=== PATIENT | female | born 1970 | race Caucasian/White ===

== ENCOUNTER 2019-08-14 08:52 | Inpatient (IN) ==
[2019-08-14] MEDS ORDERED: GLUCAGON 1 MG VIAL IM PRN (13:32)
[2019-08-14] MEDS ORDERED: MAGNESIUM HYDROXIDE SUSP 30 ML UDCUP PO PRN (13:32)
[2019-08-14] MEDS ORDERED: ACETAMINOPHEN 325 MG TABLET PO PRN (13:32)
[2019-08-14] MEDS ORDERED: ONDANSETRON 4 MG/2 ML VIAL IV PRN (13:32)
[2019-08-14] MEDS ORDERED: DEXTROSE 50% 25 GM/50 ML VIAL IV PRN (13:32)
[2019-08-14 15:36] LABS: Basophils # 0.1 10*3/uL (0.0-0.2); Basophils % 0.8 % (0.0-0.8); Eosinophils # 0.1 10*3/uL (0.0-0.87); Hematocrit 44.4 VOL% (35.7-47.0); Hemoglobin 15.7 GM/DL (12.0-16.0); Immature Granulocytes % 0.1 %; Immature Granulocytes Absolute 0.01 #; Lymphocytes # 2.7 10*3/uL (1.4-4.0); Lymphocytes % 31.5 % (21.3-54.2); Mean Corpuscular HGB Conc 35.4 GM/DL (32-36); Mean Corpuscular Volume 83.3 FL (87-102); Mean Platelet Volume 10.3 FL (9.6-12.0); Monocytes % 3.9 % (1.7-12.7); Neutrophils % 62.7 % (38.7-73.9); Platelet Count 162 T/CUMM (130-400); Red Blood Count 5.33 MC/CUMM (3.8-5.5); Red Cell Distribution Width 13.1 % (9.3-17.3); White Blood Count 8.7 T/CUMM (4-12)
[2019-08-14] MEDS ORDERED: KETOROLAC 30 MG/1 ML VIAL IV SCH (16:00)
[2019-08-14] MEDS ORDERED: LEVOFLOXACIN INJ 250 MG in PREMIX 1 EACH IV SCH (16:00)
[2019-08-14 16:27] LABS: Albumin 3.4 G/DL (3.4-5.0); Bilirubin,Total 0.5 MG/DL (0.2-1.0); Calcium 9.4 MG/DL (8.5-10.1); Osmolality,Calculated 277.4 MOS/KG (273-304); Total Protein 7.1 G/DL (6.4-8.3)
[2019-08-14] MEDS: SODIUM CHLORIDE 0.9% 1,000 ML IV SCH (16:51)
[2019-08-14] MEDS: PANTOPRAZOLE 40 MG TABLET PO SCH (16:52)
[2019-08-14] MEDS: INSULIN REGULAR 100 UNIT/ML SUBCUT SCH ×2 (16:53→21:47)
[2019-08-14] MEDS: KETOROLAC 30 MG/1 ML VIAL IV SCH (20:11)
[2019-08-14] MEDS: SULFAMETHOX/TRIMETHOPRIM 800-160 MG TABLET PO SCH (21:32)
[2019-08-14] MEDS: DOCUSATE SODIUM 100 MG CAPSULE PO SCH (21:32)
[2019-08-14] MEDS: ENOXAPARIN 40 MG/0.4 ML SYRINGE SUBCUT SCH (21:33)
[2019-08-14] MEDS: traMADol 50 MG TABLET PO PRN (21:33)
[2019-08-15] MEDS: KETOROLAC 30 MG/1 ML VIAL IV SCH ×4 (00:51→20:35)
[2019-08-15] MEDS: VANCOMYCIN INJ 1,000 MG in SODIUM CHLORIDE 0.9% 250 ML IV SCH (05:17)
[2019-08-15] MEDS: SODIUM CHLORIDE 0.9% 1,000 ML IV SCH ×2 (06:00→21:36)
[2019-08-15 07:10] LABS: Calcium 7.4 MG/DL (8.5-10.1); Risk Ratio 11.6; VLDL CHOLESTEROL 564.6 MG/DL
[2019-08-15 07:18] LABS: Osmolality,Calculated 277.1 MOS/KG (273-304)
[2019-08-15] MEDS: INSULIN REGULAR 100 UNIT/ML SUBCUT SCH ×4 (08:34→21:38)
[2019-08-15] MEDS: SERTRALINE 25 MG TABLET PO SCH (08:35)
[2019-08-15] MEDS: sitaGLIPtin 25 MG TABLET PO SCH (08:35)
[2019-08-15] MEDS: METOPROLOL SUCCINATE XL 50 MG TABLET PO SCH (08:35)
[2019-08-15] MEDS: ASPIRIN EC 81 MG TABLET PO SCH (08:35)
[2019-08-15] MEDS: ESTRADIOL 1 MG TABLET PO SCH (08:35)
[2019-08-15] MEDS: SULFAMETHOX/TRIMETHOPRIM 800-160 MG TABLET PO SCH ×2 (08:35→21:37)
[2019-08-15] MEDS: PANTOPRAZOLE 40 MG TABLET PO SCH (08:36)
[2019-08-15] MEDS: DOCUSATE SODIUM 100 MG CAPSULE PO SCH ×2 (08:36→21:38)
[2019-08-15] MEDS: gemfibroziL 600 MG TABLET PO SCH ×2 (08:36→16:20)
[2019-08-15] MEDS: INSULIN GLARGINE 100 UNIT/ML SUBCUT SCH (09:00)
[2019-08-15] MEDS: traMADol 50 MG TABLET PO PRN (12:40)
[2019-08-15] MEDS: NICOTINE 14 MG/24 HR PATCH TRANSDERM SCH (18:20)
[2019-08-15] MEDS: ENOXAPARIN 40 MG/0.4 ML SYRINGE SUBCUT SCH (21:37)
[2019-08-15] MEDS: SIMVASTATIN 20 MG TABLET PO SCH (21:37)
[2019-08-16] MEDS: KETOROLAC 30 MG/1 ML VIAL IV SCH ×4 (00:09→18:03)
[2019-08-16] MEDS: VANCOMYCIN INJ 1,000 MG in SODIUM CHLORIDE 0.9% 250 ML IV SCH ×2 (00:10→18:02)
[2019-08-16] MEDS: SODIUM CHLORIDE 0.9% 1,000 ML IV SCH ×3 (00:26→21:58)
[2019-08-16 05:57] LABS: Basophils % 0.7 % (0.0-0.8); Eosinophils # 0.1 10*3/uL (0.0-0.87); Eosinophils % 1.1 % (0.00-10.9); Hematocrit 41.4 VOL% (35.7-47.0); Hemoglobin 14.7 GM/DL (12.0-16.0); Immature Granulocytes % 0.4 %; Immature Granulocytes Absolute 0.02 #; Lymphocytes # 2.1 10*3/uL (1.4-4.0); Lymphocytes % 38.8 % (21.3-54.2); Mean Corpuscular HGB Conc 35.5 GM/DL (32-36); Mean Corpuscular Volume 83.6 FL (87-102); Mean Platelet Volume 10.1 FL (9.6-12.0); Monocytes % 5.3 % (1.7-12.7); Neutrophils % 53.7 % (38.7-73.9); Platelet Count 140 T/CUMM (130-400); Red Blood Count 4.95 MC/CUMM (3.8-5.5); Red Cell Distribution Width 13.2 % (9.3-17.3); White Blood Count 5.5 T/CUMM (4-12)
[2019-08-16 06:23] LABS: Microcytosis 1+
[2019-08-16 06:24] LABS: Hypochromasia Slight; Platelet Estimate Adequate; Polychromasia Slight
[2019-08-16 07:15] LABS: Calcium 7.1 MG/DL (8.5-10.1); Osmolality,Calculated 278.1 MOS/KG (273-304)
[2019-08-16] MEDS: INSULIN GLARGINE 100 UNIT/ML SUBCUT SCH (08:49)
[2019-08-16] MEDS: PANTOPRAZOLE 40 MG TABLET PO SCH (08:50)
[2019-08-16] MEDS: sitaGLIPtin 25 MG TABLET PO SCH (08:50)
[2019-08-16] MEDS: ASPIRIN EC 81 MG TABLET PO SCH (08:50)
[2019-08-16] MEDS: ESTRADIOL 1 MG TABLET PO SCH (08:50)
[2019-08-16] MEDS: DOCUSATE SODIUM 100 MG CAPSULE PO SCH ×2 (08:50→21:51)
[2019-08-16] MEDS: NICOTINE 14 MG/24 HR PATCH TRANSDERM SCH (08:50)
[2019-08-16] MEDS: SERTRALINE 25 MG TABLET PO SCH (08:50)
[2019-08-16] MEDS: METOPROLOL SUCCINATE XL 50 MG TABLET PO SCH (08:50)
[2019-08-16] MEDS: SULFAMETHOX/TRIMETHOPRIM 800-160 MG TABLET PO SCH ×2 (08:50→21:50)
[2019-08-16] MEDS: gemfibroziL 600 MG TABLET PO SCH ×2 (08:50→16:39)
[2019-08-16] MEDS: INSULIN REGULAR 100 UNIT/ML SUBCUT SCH ×4 (09:21→22:23)
[2019-08-16 13:03] LABS: Apearance,Urine CLEAR (Clear); Bilirubin,Urine Negative (Negative); Blood, Urine Negative (Negative); Glucose,Urine (UA) 50 mg/dL (Negative); Ketones,Urine Negative (Negative); Mucus,Urine Occasional /LPF (Occasional); Nitrite,Urine Negative (Negative); Protein,Urine Negative; Squamous Epithelial Cell,Urine Occasional /HPF (0-10); Urine Color Straw (Yellow); Urine Specific Gravity 1.014 (1.001-1.035); Urine Urobilinogen < 2.0 EU/DL (0.2-1.0); WBC,Urine 1 /HPF (0-6)
[2019-08-16] MEDS: SIMVASTATIN 20 MG TABLET PO SCH (21:50)
[2019-08-16] MEDS: ENOXAPARIN 40 MG/0.4 ML SYRINGE SUBCUT SCH (21:51)
[2019-08-17] MEDS: KETOROLAC 30 MG/1 ML VIAL IV SCH ×2 (00:14→05:47)
[2019-08-17] MEDS: SODIUM CHLORIDE 0.9% 1,000 ML IV SCH (00:52)
[2019-08-17 05:51] LABS: Calcium 7.3 MG/DL (8.5-10.1)
[2019-08-17] MEDS: INSULIN REGULAR 100 UNIT/ML SUBCUT SCH (08:54)
[2019-08-17] MEDS: INSULIN GLARGINE 100 UNIT/ML SUBCUT SCH (08:54)
[2019-08-17] MEDS: METOPROLOL SUCCINATE XL 50 MG TABLET PO SCH (08:55)
[2019-08-17] MEDS: ASPIRIN EC 81 MG TABLET PO SCH (08:55)
[2019-08-17] MEDS: gemfibroziL 600 MG TABLET PO SCH (08:55)
[2019-08-17] MEDS: PANTOPRAZOLE 40 MG TABLET PO SCH (08:55)
[2019-08-17] MEDS: SERTRALINE 25 MG TABLET PO SCH (08:55)
[2019-08-17] MEDS: sitaGLIPtin 25 MG TABLET PO SCH (08:55)
[2019-08-17] MEDS: ESTRADIOL 1 MG TABLET PO SCH (08:55)
[2019-08-17] MEDS: NICOTINE 14 MG/24 HR PATCH TRANSDERM SCH (08:55)
[2019-08-17] MEDS: DOCUSATE SODIUM 100 MG CAPSULE PO SCH (08:55)
[2019-08-17] MEDS: SULFAMETHOX/TRIMETHOPRIM 800-160 MG TABLET PO SCH (08:56)
[2019-08-17 11:20] VITALS: BP 164/83
== END 2019-08-17 12:00 | disposition home or self-care (01) | DRG 638 ==
LOC: N.3E 14:20
PROVIDERS: ADMIT Internal Medicine; ATTEND Internal Medicine

== ENCOUNTER 2020-02-19 11:13 | Observation (INO) ==
[2020-02-19 12:20] LABS: Basophils # 0.1 10*3/uL (0.0-0.2); Basophils % 0.6 % (0.0-0.8); Eosinophils # 0.1 10*3/uL (0.0-0.87); Eosinophils % 0.8 % (0.00-10.9); Hemoglobin 16.4 GM/DL (12.0-16.0); Immature Granulocytes % 0.4 %; Immature Granulocytes Absolute 0.04 #; Lymphocytes # 2.8 10*3/uL (1.4-4.0); Lymphocytes % 30.3 % (21.3-54.2); Mean Corpuscular HGB Conc 35.7 GM/DL (32-36); Mean Corpuscular Volume 81.9 FL (87-102); Mean Platelet Volume 9.3 FL (9.6-12.0); Monocytes % 4.7 % (1.7-12.7); Neutrophils % 63.2 % (38.7-73.9); Platelet Count 136 T/CUMM (130-400); Red Blood Count 5.62 MC/CUMM (3.8-5.5); Red Cell Distribution Width 13.2 % (9.3-17.3); White Blood Count 9.3 T/CUMM (4-12)
[2020-02-19 12:27] LABS: Bacteria,Urine Occasional /HPF (Few); Bilirubin,Urine Negative (Negative); Blood, Urine Negative (Negative); Glucose,Urine (UA) Negative (Negative); Ketones,Urine Negative (Negative); Mucus,Urine Occasional /LPF (Occasional); Nitrite,Urine Negative (Negative); Protein,Urine Negative; RBC,Urine 1 /HPF (0-4); Squamous Epithelial Cell,Urine Occasional /HPF (0-10); Urine Appearance CLEAR (Clear); Urine Color Yellow (Yellow); Urine Specific Gravity 1.014 (1.001-1.035); Urine Urobilinogen < 2.0 EU/DL (0.2-1.0); WBC,Urine 1 /HPF (0-6)
[2020-02-19 12:29] LABS: PT Patient Result 10.5 SECS (9.8-11.9); Partial Thromboplastin Time 26.5 SECS (23.9-33.8)
[2020-02-19 12:34] LABS: Barbiturates Screen,Urine Negative (Negative); Benzodiazepines Screen,Urine Negative (Negative); Cannabinoid Screen,Urine Positive (Negative); Opiate Screen,Urine Negative (Negative); Phencyclidine Screen,Urine Negative (Negative)
[2020-02-19 12:37] LABS: Platelet Estimate Adequate
[2020-02-19 12:38] LABS: Anisocytosis Slight
[2020-02-19 12:40] LABS: Alanine Aminotransferase 64 U/L (13-56); Albumin 3.9 G/DL (3.4-5.0); Alkaline Phosphatase 135 U/L (45-117); Aspartate Amino Transferase 29 U/L (0-37); Blood Urea Nitrogen 12 MG/DL (7-18); Calcium 8.9 MG/DL (8.5-10.1); Estimated Glom Filtration Rate 89 ML/MIN; Glucose 183 MG/DL (74-106); Osmolality,Calculated 274.1 MOS/KG (273-304)
[2020-02-19] MEDS ORDERED: DEXTROSE 50% 25 GM/50 ML VIAL IV PRN (16:05)
[2020-02-19] MEDS ORDERED: GLUCAGON 1 MG VIAL IM PRN (16:05)
[2020-02-19] MEDS ORDERED: ONDANSETRON 4 MG/2 ML VIAL IV PRN (16:05)
[2020-02-19] MEDS: SODIUM CHLORIDE 0.9% 1,000 ML IV SCH (17:25)
[2020-02-19] MEDS: INSULIN LISPRO 100 UNIT/ML SUBCUT SCH ×2 (17:26→21:15)
[2020-02-19] MEDS: KETOROLAC 15 MG/1 ML VIAL IV SCH (18:35)
[2020-02-19] MEDS: NICOTINE 14 MG/24 HR PATCH TRANSDERM SCH (18:44)
[2020-02-19] MEDS: ACETAMINOPHEN 325 MG TABLET PO PRN (21:20)
[2020-02-19] MEDS: DOCUSATE SODIUM 100 MG CAPSULE PO SCH (21:24)
[2020-02-19] MEDS: METOPROLOL SUCCINATE XL 50 MG TABLET PO SCH (23:43)
[2020-02-19] MEDS: SERTRALINE 100 MG TABLET PO SCH (23:44)
[2020-02-19] MEDS: methylPREDNISolone SOD SUC 40 MG/1 ML VIAL IV SCH (23:44)
[2020-02-20] MEDS: ASPIRIN EC 81 MG TABLET PO SCH ×2 (00:24→20:54)
[2020-02-20] MEDS: AMITRIPTYLINE 50 MG TABLET PO SCH ×2 (00:24→20:54)
[2020-02-20] MEDS: carvediloL 12.5 MG TABLET PO SCH ×2 (00:24→09:13)
[2020-02-20] MEDS: SODIUM CHLORIDE 0.9% 1,000 ML IV SCH ×3 (04:07→21:05)
[2020-02-20] MEDS: KETOROLAC 15 MG/1 ML VIAL IV SCH ×3 (04:07→17:52)
[2020-02-20 05:22] LABS: Basophils % 0.6 % (0.0-0.8); Eosinophils % 0.1 % (0.00-10.9); Hematocrit 44.2 VOL% (35.7-47.0); Hemoglobin 15.6 GM/DL (12.0-16.0); Immature Granulocytes % 0.4 %; Immature Granulocytes Absolute 0.03 #; Lymphocytes # 1.4 10*3/uL (1.4-4.0); Lymphocytes % 19.6 % (21.3-54.2); Mean Corpuscular HGB Conc 35.3 GM/DL (32-36); Mean Corpuscular Volume 83.1 FL (87-102); Mean Platelet Volume 9.3 FL (9.6-12.0); Monocytes % 2.2 % (1.7-12.7); Neutrophils % 77.1 % (38.7-73.9); Platelet Count 130 T/CUMM (130-400); Red Blood Count 5.32 MC/CUMM (3.8-5.5); Red Cell Distribution Width 13.2 % (9.3-17.3); White Blood Count 6.9 T/CUMM (4-12)
[2020-02-20 05:56] LABS: Calcium 8.3 MG/DL (8.5-10.1); Osmolality,Calculated 275.5 MOS/KG (273-304)
[2020-02-20] MEDS ORDERED: INSULIN GLARGINE 100 UNIT/ML SUBCUT SCH (09:00)
[2020-02-20] MEDS: GLIMEPIRIDE 2 MG TABLET PO SCH ×2 (09:13→16:49)
[2020-02-20] MEDS: CARBOXYMETHYLCELLULOSE 1% OPH SOLN LEFT EYE SCH ×4 (09:13→20:55)
[2020-02-20] MEDS: DOCUSATE SODIUM 100 MG CAPSULE PO SCH ×2 (09:13→20:53)
[2020-02-20] MEDS: PANTOPRAZOLE 40 MG TABLET PO SCH (09:13)
[2020-02-20] MEDS: FAMOTIDINE 20 MG TABLET PO SCH (09:13)
[2020-02-20] MEDS: ROSUVASTATIN 20 MG TABLET PO SCH (09:13)
[2020-02-20] MEDS: INSULIN LISPRO 100 UNIT/ML SUBCUT SCH ×4 (09:14→20:54)
[2020-02-20] MEDS: methylPREDNISolone SOD SUC 40 MG/1 ML VIAL IV SCH ×2 (09:14→20:54)
[2020-02-20] MEDS: NICOTINE 14 MG/24 HR PATCH TRANSDERM SCH ×2 (09:15→20:53)
[2020-02-20] MEDS: carvediloL 25 MG TABLET PO SCH ×2 (12:35→16:48)
[2020-02-20] MEDS: METOPROLOL SUCCINATE XL 50 MG TABLET PO SCH (20:53)
[2020-02-20] MEDS: SERTRALINE 100 MG TABLET PO SCH (20:53)
[2020-02-20] MEDS: ACETAMINOPHEN 325 MG TABLET PO PRN (21:05)
[2020-02-21] MEDS: SODIUM CHLORIDE 0.9% 1,000 ML IV SCH ×2 (02:18→18:30)
[2020-02-21] MEDS: KETOROLAC 15 MG/1 ML VIAL IV SCH ×3 (02:28→18:30)
[2020-02-21] MEDS: INSULIN LISPRO 100 UNIT/ML SUBCUT SCH ×4 (08:32→20:58)
[2020-02-21] MEDS ORDERED: INSULIN GLARGINE 100 UNIT/ML SUBCUT SCH (09:00)
[2020-02-21] MEDS: GLIMEPIRIDE 4 MG TABLET PO SCH ×2 (09:59→17:03)
[2020-02-21] MEDS: carvediloL 25 MG TABLET PO SCH ×2 (09:59→17:03)
[2020-02-21] MEDS: ACETAMINOPHEN 325 MG TABLET PO PRN ×3 (09:59→20:56)
[2020-02-21] MEDS: ROSUVASTATIN 20 MG TABLET PO SCH (10:00)
[2020-02-21] MEDS: FAMOTIDINE 20 MG TABLET PO SCH (10:00)
[2020-02-21] MEDS: methylPREDNISolone SOD SUC 40 MG/1 ML VIAL IV SCH ×2 (10:00→21:03)
[2020-02-21] MEDS: PANTOPRAZOLE 40 MG TABLET PO SCH (10:00)
[2020-02-21] MEDS: INSULIN GLARGINE 100 UNIT/ML SUBCUT SCH (10:01)
[2020-02-21] MEDS: FUROSEMIDE 20 MG/2 ML VIAL IV SCH (10:01)
[2020-02-21] MEDS: DOCUSATE SODIUM 100 MG CAPSULE PO SCH ×2 (10:02→20:55)
[2020-02-21] MEDS: NICOTINE 14 MG/24 HR PATCH TRANSDERM SCH (11:51)
[2020-02-21] MEDS: CARBOXYMETHYLCELLULOSE 1% OPH SOLN LEFT EYE SCH ×4 (11:51→21:05)
[2020-02-21] MEDS: ASPIRIN EC 81 MG TABLET PO SCH (20:55)
[2020-02-21] MEDS: SERTRALINE 100 MG TABLET PO SCH (20:55)
[2020-02-21] MEDS: METOPROLOL SUCCINATE XL 50 MG TABLET PO SCH (20:55)
[2020-02-21] MEDS: AMITRIPTYLINE 50 MG TABLET PO SCH (20:55)
[2020-02-22] MEDS: KETOROLAC 15 MG/1 ML VIAL IV SCH ×3 (02:54→21:22)
[2020-02-22] MEDS: SODIUM CHLORIDE 0.9% 1,000 ML IV SCH ×3 (04:37→20:23)
[2020-02-22 05:31] LABS: Calcium 8.3 MG/DL (8.5-10.1); Osmolality,Calculated 281.8 MOS/KG (273-304)
[2020-02-22] MEDS: GLIMEPIRIDE 4 MG TABLET PO SCH ×2 (10:16→17:47)
[2020-02-22] MEDS: DOCUSATE SODIUM 100 MG CAPSULE PO SCH ×2 (10:16→21:25)
[2020-02-22] MEDS: FAMOTIDINE 20 MG TABLET PO SCH (10:17)
[2020-02-22] MEDS: carvediloL 25 MG TABLET PO SCH ×2 (10:17→17:47)
[2020-02-22] MEDS: NICOTINE 14 MG/24 HR PATCH TRANSDERM SCH (10:17)
[2020-02-22] MEDS: methylPREDNISolone SOD SUC 40 MG/1 ML VIAL IV SCH ×2 (10:17→21:32)
[2020-02-22] MEDS: PANTOPRAZOLE 40 MG TABLET PO SCH (10:17)
[2020-02-22] MEDS: INSULIN GLARGINE 100 UNIT/ML SUBCUT SCH (10:18)
[2020-02-22] MEDS: FUROSEMIDE 20 MG/2 ML VIAL IV SCH (10:18)
[2020-02-22] MEDS: LIDOCAINE 5% PATCH TRANSDERM SCH (10:19)
[2020-02-22] MEDS: CARBOXYMETHYLCELLULOSE 1% OPH SOLN LEFT EYE SCH ×4 (10:20→21:28)
[2020-02-22] MEDS: INSULIN LISPRO 100 UNIT/ML SUBCUT SCH ×4 (13:02→21:24)
[2020-02-22] MEDS: ACETAMINOPHEN 325 MG TABLET PO PRN (17:47)
[2020-02-22] MEDS ORDERED: ROSUVASTATIN 20 MG TABLET PO SCH (21:00)
[2020-02-22] MEDS: ASPIRIN EC 81 MG TABLET PO SCH (21:25)
[2020-02-22] MEDS: AMITRIPTYLINE 50 MG TABLET PO SCH (21:25)
[2020-02-22] MEDS: SERTRALINE 100 MG TABLET PO SCH (21:25)
[2020-02-22] MEDS: METOPROLOL SUCCINATE XL 50 MG TABLET PO SCH (21:26)
[2020-02-23] MEDS: KETOROLAC 15 MG/1 ML VIAL IV SCH (02:42)
[2020-02-23] MEDS: SODIUM CHLORIDE 0.9% 1,000 ML IV SCH (05:34)
[2020-02-23 06:01] LABS: Basophils % 0.4 % (0.0-0.8); Eosinophils % 0.1 % (0.00-10.9); Hematocrit 44.9 VOL% (35.7-47.0); Hemoglobin 15.5 GM/DL (12.0-16.0); Immature Granulocytes Absolute 0.08 #; Lymphocytes # 1.8 10*3/uL (1.4-4.0); Lymphocytes % 22.5 % (21.3-54.2); Mean Corpuscular HGB Conc 34.5 GM/DL (32-36); Mean Corpuscular Volume 84.2 FL (87-102); Mean Platelet Volume 9.8 FL (9.6-12.0); Monocytes % 4.4 % (1.7-12.7); Neutrophils % 71.6 % (38.7-73.9); Platelet Count 120 T/CUMM (130-400); Red Blood Count 5.33 MC/CUMM (3.8-5.5); White Blood Count 8.1 T/CUMM (4-12)
[2020-02-23 06:25] LABS: Calcium 8.3 MG/DL (8.5-10.1)
[2020-02-23 07:20] VITALS: BP 143/87
[2020-02-23] MEDS: INSULIN GLARGINE 100 UNIT/ML SUBCUT SCH (08:33)
[2020-02-23] MEDS: carvediloL 25 MG TABLET PO SCH (08:33)
[2020-02-23] MEDS: PANTOPRAZOLE 40 MG TABLET PO SCH (08:33)
[2020-02-23] MEDS: DOCUSATE SODIUM 100 MG CAPSULE PO SCH (08:33)
[2020-02-23] MEDS: FAMOTIDINE 20 MG TABLET PO SCH (08:33)
[2020-02-23] MEDS: INSULIN LISPRO 100 UNIT/ML SUBCUT SCH (08:33)
[2020-02-23] MEDS: GLIMEPIRIDE 4 MG TABLET PO SCH (08:33)
[2020-02-23] MEDS: NICOTINE 14 MG/24 HR PATCH TRANSDERM SCH (08:34)
[2020-02-23] MEDS: CARBOXYMETHYLCELLULOSE 1% OPH SOLN LEFT EYE SCH (08:34)
[2020-02-23] MEDS: FUROSEMIDE 20 MG/2 ML VIAL IV SCH (08:34)
[2020-02-23] MEDS: methylPREDNISolone SOD SUC 40 MG/1 ML VIAL IV SCH (08:34)
[2020-02-23] MEDS: LIDOCAINE 5% PATCH TRANSDERM SCH (08:34)
[2020-02-23] MEDS ORDERED: cloNIDine 0.1 MG TABLET PO SCH (09:00)
[2020-02-23] MEDS ORDERED: SIMVASTATIN 20 MG TABLET PO SCH (21:00)
== END 2020-02-23 09:35 | disposition home or self-care (01) ==
LOC: N.ED 11:13 → N.EDINP 11:13 → N.3E 15:39
PROVIDERS: ADMIT Internal Medicine; ATTEND Internal Medicine

== ENCOUNTER 2020-03-23 15:36 | Inpatient (IN) ==
[2020-03-23] MEDS ORDERED: SODIUM CHLORIDE 0.9% 1,000 ML IV STA (16:04)
[2020-03-23] MEDS ORDERED: ONDANSETRON 4 MG/2 ML VIAL IV ONE (16:19)
[2020-03-23] MEDS ORDERED: HYDROmorphone 2 MG/1 ML VIAL IV STA ×3 (16:19→18:34)
[2020-03-23] MEDS ORDERED: HYDROmorphone 2 MG/1 ML VIAL ONE (16:20)
[2020-03-23] MEDS ORDERED: ONDANSETRON 4 MG/2 ML VIAL ONE (16:20)
[2020-03-23 16:44] LABS: Basophils # 0.1 10*3/uL (0.0-0.2); Basophils % 0.5 % (0.0-0.8); Eosinophils % 0.3 % (0.00-10.9); Hematocrit 45.8 VOL% (35.7-47.0); Hemoglobin 19.4 GM/DL (12.0-16.0); Immature Granulocytes % 0.5 %; Immature Granulocytes Absolute 0.05 #; Mean Corpuscular HGB Conc 42.4 GM/DL (32-36); Mean Corpuscular Volume 82.7 FL (87-102); Mean Platelet Volume 10.1 FL (9.6-12.0); Neutrophils % 75.7 % (38.7-73.9); Platelet Count 182 T/CUMM (130-400); Red Blood Count 5.54 MC/CUMM (3.8-5.5); Red Cell Distribution Width 12.8 % (9.3-17.3); White Blood Count 10.6 T/CUMM (4-12)
[2020-03-23 16:52] LABS: Band Neutrophils 1 % (0-10); Lymphocytes 15 % (20-55); Segmented Neutrophils 76 % (50-85); Total Cells Counted 100
[2020-03-23 16:53] LABS: Platelet Estimate Adequate
[2020-03-23 17:01] LABS: Sodium 126 MMOL/L (136-145)
[2020-03-23 17:19] LABS: Alkaline Phosphatase 184 U/L (45-117); Aspartate Amino Transferase 83 U/L (0-37); Calcium 7.5 MG/DL (8.5-10.1)
[2020-03-23 17:21] LABS: Blood Urea Nitrogen 12 MG/DL (7-18); Estimated Glom Filtration Rate 88 ML/MIN
[2020-03-23 17:22] LABS: Carbon Dioxide 23 MMOL/L (21-32); Glucose 387 MG/DL (74-106); Osmolality,Calculated 268.4 MOS/KG (273-304)
[2020-03-23 17:32] LABS: Total Protein 7.3 G/DL (6.4-8.3)
[2020-03-23 17:38] LABS: Alanine Aminotransferase 101 U/L (13-56)
[2020-03-23 17:39] LABS: Bacteria,Urine Occasional /HPF (Few); Bilirubin,Urine Negative (Negative); Blood, Urine Negative (Negative); Glucose,Urine (UA) >=500 mg/dL (Negative); Ketones,Urine Negative (Negative); Nitrite,Urine Negative (Negative); Protein,Urine >=500 MG/DL; RBC,Urine 1 /HPF (0-4); Squamous Epithelial Cell,Urine Occasional /HPF (0-10); Urine Appearance CLEAR (Clear); Urine Color Yellow (Yellow); Urine Specific Gravity 1.045 (1.001-1.035); Urine Urobilinogen < 2.0 EU/DL (0.2-1.0); WBC,Urine 1 /HPF (0-6)
[2020-03-23 18:11] LABS: Risk Ratio 17.6
[2020-03-23 18:12] LABS: VLDL CHOLESTEROL 1885.6 MG/DL
[2020-03-23] MEDS: SODIUM CHLORIDE 0.9% 1,000 ML IV SCH (19:12)
[2020-03-23] MEDS: AMITRIPTYLINE 50 MG TABLET PO SCH (20:12)
[2020-03-23] MEDS: SIMVASTATIN 20 MG TABLET PO SCH (20:12)
[2020-03-23] MEDS: ASPIRIN EC 81 MG TABLET PO SCH (20:12)
[2020-03-23] MEDS: OMEGA 3 ACID ETHYL ESTERS 1 GM CAPSULE PO SCH (20:12)
[2020-03-23] MEDS: DOCUSATE SODIUM 100 MG CAPSULE PO SCH (20:12)
[2020-03-23] MEDS: SERTRALINE 100 MG TABLET PO SCH (20:12)
[2020-03-23] MEDS: HYDROmorphone 2 MG/1 ML VIAL IV PRN (22:22)
[2020-03-23] MEDS: ONDANSETRON 4 MG/2 ML VIAL IV PRN (23:49)
[2020-03-24] MEDS: HYDROmorphone 2 MG/1 ML VIAL IV PRN ×4 (02:14→20:30)
[2020-03-24] MEDS: SODIUM CHLORIDE 0.9% 1,000 ML IV SCH ×2 (02:15→14:57)
[2020-03-24] MEDS: ONDANSETRON 4 MG/2 ML VIAL IV PRN ×3 (06:09→20:35)
[2020-03-24 06:58] LABS: Basophils % 0.4 % (0.0-0.8); Eosinophils % 0.4 % (0.00-10.9); Hematocrit 43.2 VOL% (35.7-47.0); Hemoglobin 16.4 GM/DL (12.0-16.0); Immature Granulocytes % 0.3 %; Immature Granulocytes Absolute 0.03 #; Lymphocytes # 1.7 10*3/uL (1.4-4.0); Lymphocytes % 18.3 % (21.3-54.2); Mean Corpuscular Volume 85.5 FL (87-102); Monocytes % 5.2 % (1.7-12.7); Neutrophils % 75.4 % (38.7-73.9); Platelet Count 141 T/CUMM (130-400); Red Blood Count 5.05 MC/CUMM (3.8-5.5); Red Cell Distribution Width 13.2 % (9.3-17.3); White Blood Count 9.3 T/CUMM (4-12)
[2020-03-24 07:24] LABS: Platelet Estimate Adequate
[2020-03-24] MEDS ORDERED: INSULIN GLARGINE 100 UNIT/ML SUBCUT SCH (07:30)
[2020-03-24 08:01] LABS: Carbon Dioxide 24 MMOL/L (21-32); Estimated Glom Filtration Rate 109 ML/MIN; Glucose 334 MG/DL (74-106); Osmolality,Calculated 260.5 MOS/KG (273-304); Sodium 125 MMOL/L (136-145)
[2020-03-24] MEDS: ACETAMINOPHEN 325 MG TABLET PO PRN ×2 (08:02→17:19)
[2020-03-24] MEDS: PANTOPRAZOLE 40 MG TABLET PO SCH (08:02)
[2020-03-24 08:03] LABS: Alkaline Phosphatase 152 U/L (45-117)
[2020-03-24] MEDS: carvediloL 25 MG TABLET PO SCH ×2 (08:03→16:16)
[2020-03-24] MEDS: DOCUSATE SODIUM 100 MG CAPSULE PO SCH ×2 (08:03→20:29)
[2020-03-24] MEDS: FAMOTIDINE 20 MG TABLET PO SCH (08:03)
[2020-03-24 08:04] LABS: Albumin 2.4 G/DL (3.4-5.0); Blood Urea Nitrogen 4 MG/DL (7-18)
[2020-03-24 08:05] LABS: Bilirubin,Total 1.17 MG/DL (0.2-1.0)
[2020-03-24 08:10] LABS: Aspartate Amino Transferase 189 U/L (0-37)
[2020-03-24 08:44] LABS: Alanine Aminotransferase 115 U/L (13-56)
[2020-03-24] MEDS: SODIUM CHLOR 0.9% KCL 20 MEQ 20 MEQ/1,000 ML BAG IV SCH ×2 (11:29→20:50)
[2020-03-24] MEDS: POTASSIUM CHLORIDE RIDER 10 MEQ in PREMIX 1 EACH IV SCH ×3 (11:29→16:17)
[2020-03-24] MEDS ORDERED: HYDROmorphone 2 MG/1 ML VIAL IV ONE (11:30)
[2020-03-24] MEDS: INSULIN LISPRO 100 UNIT/ML SUBCUT SCH ×3 (12:39→20:53)
[2020-03-24] MEDS: CARBOXYMETHYLCELLULOSE 1% OPH SOLN LEFT EYE SCH ×3 (15:21→20:50)
[2020-03-24] MEDS: GLIMEPIRIDE 4 MG TABLET PO SCH (16:16)
[2020-03-24 16:50] LABS: Hepatitis B Core IgM Quant < 0.05 Index; Hepatitis B Surface Ag Quant 0.26 Index; Hepatitis B Surface Ag Result Non-Reactive (NonReactive); Hepatitis C Virus Ab Quant 0.04 Index; Hepatitis C Virus Ab Result Non-Reactive (NonReactive)
[2020-03-24] MEDS: AMITRIPTYLINE 50 MG TABLET PO SCH (20:29)
[2020-03-24] MEDS: OMEGA 3 ACID ETHYL ESTERS 1 GM CAPSULE PO SCH (20:29)
[2020-03-24] MEDS: SIMVASTATIN 20 MG TABLET PO SCH (20:29)
[2020-03-24] MEDS: SERTRALINE 100 MG TABLET PO SCH (20:29)
[2020-03-24] MEDS: ASPIRIN EC 81 MG TABLET PO SCH (20:29)
[2020-03-25] MEDS: HYDROmorphone 2 MG/1 ML VIAL IV PRN ×5 (01:47→22:30)
[2020-03-25] MEDS: ONDANSETRON 4 MG/2 ML VIAL IV PRN ×3 (01:48→18:56)
[2020-03-25] MEDS: SODIUM CHLOR 0.9% KCL 20 MEQ 20 MEQ/1,000 ML BAG IV SCH ×4 (02:32→22:38)
[2020-03-25 05:35] LABS: Basophils # 0.1 10*3/uL (0.0-0.2); Basophils % 0.4 % (0.0-0.8); Eosinophils # 0.1 10*3/uL (0.0-0.87); Eosinophils % 0.4 % (0.00-10.9); Hematocrit 43.6 VOL% (35.7-47.0); Hemoglobin 15.2 GM/DL (12.0-16.0); Immature Granulocytes % 0.3 %; Immature Granulocytes Absolute 0.04 #; Lymphocytes # 1.6 10*3/uL (1.4-4.0); Lymphocytes % 13.5 % (21.3-54.2); Mean Corpuscular HGB Conc 34.9 GM/DL (32-36); Mean Corpuscular Volume 85.3 FL (87-102); Mean Platelet Volume 10.2 FL (9.6-12.0); Monocytes % 4.1 % (1.7-12.7); Neutrophils % 81.3 % (38.7-73.9); Platelet Count 141 T/CUMM (130-400); Red Blood Count 5.11 MC/CUMM (3.8-5.5); Red Cell Distribution Width 13.1 % (9.3-17.3); White Blood Count 11.6 T/CUMM (4-12)
[2020-03-25 06:04] LABS: Anisocytosis 1+; Band Neutrophils 20 % (0-10); Eosinophils 1 % (0-10); Lymphocytes 16 % (20-55); Platelet Estimate Adequate; Segmented Neutrophils 57 % (50-85); Total Cells Counted 100
[2020-03-25 06:05] LABS: Macrocytosis Slight
[2020-03-25] MEDS: INSULIN LISPRO 100 UNIT/ML SUBCUT SCH ×4 (06:33→21:53)
[2020-03-25] MEDS: INSULIN GLARGINE 100 UNIT/ML SUBCUT SCH (06:34)
[2020-03-25 07:09] LABS: Albumin 2.6 G/DL (3.4-5.0); Bilirubin,Total 1.5 MG/DL (0.2-1.0); Calcium 8.1 MG/DL (8.5-10.1); Osmolality,Calculated 264.8 MOS/KG (273-304); Potassium 3.5 MMOL/L (3.5-5.1); Risk Ratio 16.04; Total Protein 7.4 G/DL (6.4-8.3); VLDL CHOLESTEROL 549.6 MG/DL
[2020-03-25] MEDS: CARBOXYMETHYLCELLULOSE 1% OPH SOLN LEFT EYE SCH ×4 (08:55→22:37)
[2020-03-25] MEDS: PANTOPRAZOLE 40 MG TABLET PO SCH (08:55)
[2020-03-25] MEDS: carvediloL 25 MG TABLET PO SCH ×2 (08:55→16:12)
[2020-03-25] MEDS: DOCUSATE SODIUM 100 MG CAPSULE PO SCH ×2 (08:55→21:45)
[2020-03-25] MEDS: FAMOTIDINE 20 MG TABLET PO SCH (08:55)
[2020-03-25] MEDS: ACETAMINOPHEN 325 MG TABLET PO PRN ×2 (08:55→17:40)
[2020-03-25] MEDS: GLIMEPIRIDE 4 MG TABLET PO SCH ×2 (08:55→16:40)
[2020-03-25] MEDS ORDERED: MAGNESIUM SULF RIDER 2 GM in PREMIX 1 EACH IV ONE (15:01)
[2020-03-25] MEDS: KETOROLAC 15 MG/1 ML VIAL IV SCH ×2 (15:32→21:40)
[2020-03-25] MEDS: ASPIRIN EC 81 MG TABLET PO SCH (21:45)
[2020-03-25] MEDS: SERTRALINE 100 MG TABLET PO SCH (21:46)
[2020-03-25] MEDS: AMITRIPTYLINE 50 MG TABLET PO SCH (21:46)
[2020-03-25] MEDS: OMEGA 3 ACID ETHYL ESTERS 1 GM CAPSULE PO SCH (21:46)
[2020-03-25] MEDS: METOPROLOL TARTRATE 25 MG TABLET PO SCH ×2 (21:46→21:53)
[2020-03-25] MEDS: SIMVASTATIN 20 MG TABLET PO SCH (21:47)
[2020-03-26] MEDS: ONDANSETRON 4 MG/2 ML VIAL IV PRN ×2 (00:46→11:05)
[2020-03-26] MEDS ORDERED: METOPROLOL TARTRATE 25 MG TABLET PO ONE (03:30)
[2020-03-26] MEDS: METOPROLOL TARTRATE 25 MG TABLET PO SCH ×3 (03:58→23:01)
[2020-03-26] MEDS: MAGNESIUM HYDROXIDE SUSP 30 ML UDCUP PO SCH ×5 (04:51→23:03)
[2020-03-26] MEDS: KETOROLAC 15 MG/1 ML VIAL IV SCH ×4 (04:52→22:57)
[2020-03-26 05:36] LABS: Eosinophils % 0.3 % (0.00-10.9); Hemoglobin 13.6 GM/DL (12.0-16.0)
[2020-03-26 05:41] LABS: Basophils % 0.4 % (0.0-0.8); Hematocrit 38.6 VOL% (35.7-47.0); Immature Granulocytes % 1.2 %; Immature Granulocytes Absolute 0.12 #; Lymphocytes # 0.6 10*3/uL (1.4-4.0); Lymphocytes % 6.4 % (21.3-54.2); Mean Corpuscular HGB Conc 35.2 GM/DL (32-36); Mean Corpuscular Volume 84.3 FL (87-102); Mean Platelet Volume 9.6 FL (9.6-12.0); Monocytes % 3.4 % (1.7-12.7); Neutrophils % 88.3 % (38.7-73.9); Platelet Count 119 T/CUMM (130-400); Red Blood Count 4.58 MC/CUMM (3.8-5.5); Red Cell Distribution Width 13.1 % (9.3-17.3); White Blood Count 9.9 T/CUMM (4-12)
[2020-03-26] MEDS: ACETAMINOPHEN 325 MG TABLET PO PRN (05:59)
[2020-03-26 06:11] LABS: Albumin 2.1 G/DL (3.4-5.0); Bilirubin,Total 1.8 MG/DL (0.2-1.0); Calcium 8.1 MG/DL (8.5-10.1); Osmolality,Calculated 260.9 MOS/KG (273-304); Total Protein 7.1 G/DL (6.4-8.3)
[2020-03-26] MEDS: INSULIN LISPRO 100 UNIT/ML SUBCUT SCH ×4 (08:46→23:09)
[2020-03-26] MEDS: INSULIN GLARGINE 100 UNIT/ML SUBCUT SCH (08:47)
[2020-03-26] MEDS: FAMOTIDINE 20 MG TABLET PO SCH (08:50)
[2020-03-26] MEDS: PANTOPRAZOLE 40 MG TABLET PO SCH (08:50)
[2020-03-26] MEDS: carvediloL 25 MG TABLET PO SCH ×2 (08:50→16:09)
[2020-03-26] MEDS: GLIMEPIRIDE 4 MG TABLET PO SCH ×2 (08:50→16:09)
[2020-03-26] MEDS: DOCUSATE SODIUM 100 MG CAPSULE PO SCH ×2 (11:21→23:05)
[2020-03-26] MEDS: CARBOXYMETHYLCELLULOSE 1% OPH SOLN LEFT EYE SCH ×4 (11:22→23:03)
[2020-03-26] MEDS: methylPREDNISolone SOD SUC 40 MG/1 ML VIAL IV SCH ×2 (12:01→22:20)
[2020-03-26] MEDS: ALBUTEROL/IPRATROPIUM 3 ML NEB RESP TX SCH ×2 (12:17→20:04)
[2020-03-26] MEDS: BUDESONIDE 0.25 MG/2 ML NEB RESP TX SCH ×2 (12:17→20:04)
[2020-03-26 13:21] LABS: Troponin I < 0.015 NG/ML (0.00-0.045)
[2020-03-26] MEDS: ALPRAZolam 0.25 MG TABLET PO SCH ×2 (13:28→23:05)
[2020-03-26] MEDS: traMADol 50 MG TABLET PO PRN (13:33)
[2020-03-26] MEDS ORDERED: FUROSEMIDE 40 MG/4 ML VIAL IV ONE (15:00)
[2020-03-26] MEDS: AZITHROMYCIN INJ 500 MG in SODIUM CHLORIDE 0.9% 250 ML IV SCH (16:08)
[2020-03-26] MEDS: SODIUM CHLOR 0.9% KCL 20 MEQ 20 MEQ/1,000 ML BAG IV SCH ×3 (17:59→18:43)
[2020-03-26] MEDS: MEROPENEM 500 MG in SODIUM CHLORIDE 0.9% 100 ML IV SCH ×2 (18:00→22:25)
[2020-03-26] MEDS: SERTRALINE 100 MG TABLET PO SCH (23:01)
[2020-03-26] MEDS: SIMVASTATIN 20 MG TABLET PO SCH (23:01)
[2020-03-26] MEDS: OMEGA 3 ACID ETHYL ESTERS 1 GM CAPSULE PO SCH (23:02)
[2020-03-26] MEDS: AMITRIPTYLINE 50 MG TABLET PO SCH (23:07)
[2020-03-26] MEDS: ASPIRIN EC 81 MG TABLET PO SCH (23:08)
[2020-03-27] MEDS: ALBUTEROL/IPRATROPIUM 3 ML NEB RESP TX SCH ×4 (00:25→19:01)
[2020-03-27] MEDS: methylPREDNISolone SOD SUC 40 MG/1 ML VIAL IV SCH ×4 (03:42→21:46)
[2020-03-27] MEDS: MEROPENEM 500 MG in SODIUM CHLORIDE 0.9% 100 ML IV SCH ×4 (03:44→21:47)
[2020-03-27] MEDS: INSULIN LISPRO 100 UNIT/ML SUBCUT SCH ×5 (03:44→22:00)
[2020-03-27] MEDS: KETOROLAC 15 MG/1 ML VIAL IV SCH ×4 (03:45→21:45)
[2020-03-27 05:52] LABS: Basophils % 0.2 % (0.0-0.8); Hematocrit 38.2 VOL% (35.7-47.0); Hemoglobin 12.6 GM/DL (12.0-16.0); Immature Granulocytes % 0.4 %; Immature Granulocytes Absolute 0.04 #; Lymphocytes # 0.5 10*3/uL (1.4-4.0); Lymphocytes % 5.2 % (21.3-54.2); Mean Corpuscular Volume 87.6 FL (87-102); Mean Platelet Volume 10.4 FL (9.6-12.0); Monocytes % 3.6 % (1.7-12.7); Neutrophils % 90.6 % (38.7-73.9); Platelet Count 157 T/CUMM (130-400); Red Blood Count 4.36 MC/CUMM (3.8-5.5); Red Cell Distribution Width 13.5 % (9.3-17.3); White Blood Count 9.9 T/CUMM (4-12)
[2020-03-27 06:21] LABS: Albumin 1.9 G/DL (3.4-5.0); Bilirubin,Total 1.1 MG/DL (0.2-1.0); Calcium 8.8 MG/DL (8.5-10.1); Osmolality,Calculated 272.1 MOS/KG (273-304); Potassium 3.8 MMOL/L (3.5-5.1); Risk Ratio 22.21; Total Protein 7.1 G/DL (6.4-8.3); VLDL CHOLESTEROL 161.2 MG/DL
[2020-03-27 06:29] LABS: ABG Base Excess -7.2 MMOL/L (-2.5-2.5); ABG HCO3 18.5 MMOL/L (20-26); ABG Oxygen Saturation 90.4 % (95-100); ABG PCO2 35.2 MM HG (35-48); ABG PH 7.321 (7.35-7.45); ABG PO2 62.6 MM HG (80-95); ABG TCO2 16.1 MMOL/L (23-27)
[2020-03-27 06:47] LABS: Lymphocytes 2 % (20-55); Segmented Neutrophils 96 % (50-85); Total Cells Counted 100
[2020-03-27 06:48] LABS: Platelet Estimate Adequate
[2020-03-27] MEDS: BUDESONIDE 0.25 MG/2 ML NEB RESP TX SCH ×2 (07:10→19:01)
[2020-03-27] MEDS: INSULIN GLARGINE 100 UNIT/ML SUBCUT SCH (08:34)
[2020-03-27] MEDS: DOCUSATE SODIUM 100 MG CAPSULE PO SCH ×3 (08:36→21:59)
[2020-03-27] MEDS: carvediloL 25 MG TABLET PO SCH ×2 (08:37→16:32)
[2020-03-27] MEDS: FAMOTIDINE 20 MG TABLET PO SCH (08:37)
[2020-03-27] MEDS: ALPRAZolam 0.25 MG TABLET PO SCH ×2 (08:37→21:46)
[2020-03-27] MEDS: FUROSEMIDE 40 MG/4 ML VIAL IV SCH (08:37)
[2020-03-27] MEDS: GLIMEPIRIDE 4 MG TABLET PO SCH ×2 (08:37→16:32)
[2020-03-27] MEDS: PANTOPRAZOLE 40 MG TABLET PO SCH (08:37)
[2020-03-27] MEDS: MAGNESIUM HYDROXIDE SUSP 30 ML UDCUP PO SCH ×4 (08:39→21:46)
[2020-03-27] MEDS: CARBOXYMETHYLCELLULOSE 1% OPH SOLN LEFT EYE SCH ×4 (08:39→21:46)
[2020-03-27] MEDS: SODIUM CHLOR 0.9% KCL 20 MEQ 20 MEQ/1,000 ML BAG IV SCH ×2 (08:40→22:31)
[2020-03-27] MEDS: NICOTINE 7 MG/24 HR PATCH TRANSDERM SCH (09:35)
[2020-03-27] MEDS: ONDANSETRON 4 MG/2 ML VIAL IV PRN (09:42)
[2020-03-27] MEDS: METOPROLOL TARTRATE 25 MG TABLET PO SCH ×2 (09:42→22:00)
[2020-03-27] MEDS: AZITHROMYCIN INJ 500 MG in SODIUM CHLORIDE 0.9% 250 ML IV SCH (09:43)
[2020-03-27] MEDS: ACETAMINOPHEN 325 MG TABLET PO PRN (11:00)
[2020-03-27] MEDS: ALBUMIN 25% 25 GM in PREMIX 1 EACH IV SCH (16:31)
[2020-03-27] MEDS: ASPIRIN EC 81 MG TABLET PO SCH (21:46)
[2020-03-27] MEDS: OMEGA 3 ACID ETHYL ESTERS 1 GM CAPSULE PO SCH (21:46)
[2020-03-27] MEDS: AMITRIPTYLINE 50 MG TABLET PO SCH (21:46)
[2020-03-27] MEDS: SERTRALINE 100 MG TABLET PO SCH (21:46)
[2020-03-27] MEDS: SIMVASTATIN 20 MG TABLET PO SCH (21:47)
[2020-03-28] MEDS: INSULIN LISPRO 100 UNIT/ML SUBCUT SCH ×6 (00:31→20:50)
[2020-03-28] MEDS: ALBUMIN 25% 25 GM in PREMIX 1 EACH IV SCH ×3 (00:50→16:54)
[2020-03-28] MEDS: methylPREDNISolone SOD SUC 40 MG/1 ML VIAL IV SCH ×4 (02:21→20:53)
[2020-03-28] MEDS: KETOROLAC 15 MG/1 ML VIAL IV SCH ×4 (02:21→20:52)
[2020-03-28] MEDS: MEROPENEM 500 MG in SODIUM CHLORIDE 0.9% 100 ML IV SCH ×4 (02:21→20:53)
[2020-03-28 06:24] LABS: Basophils % 0.3 % (0.0-0.8); Hematocrit 35.9 VOL% (35.7-47.0); Hemoglobin 12.3 GM/DL (12.0-16.0); Immature Granulocytes % 1.5 %; Immature Granulocytes Absolute 0.15 #; Lymphocytes # 0.6 10*3/uL (1.4-4.0); Lymphocytes % 5.9 % (21.3-54.2); Mean Corpuscular HGB Conc 34.3 GM/DL (32-36); Mean Corpuscular Volume 85.3 FL (87-102); Mean Platelet Volume 9.9 FL (9.6-12.0); Monocytes % 2.9 % (1.7-12.7); Neutrophils % 89.4 % (38.7-73.9); Platelet Count 160 T/CUMM (130-400); Red Blood Count 4.21 MC/CUMM (3.8-5.5); Red Cell Distribution Width 14.2 % (9.3-17.3); White Blood Count 10.3 T/CUMM (4-12)
[2020-03-28 06:48] LABS: Band Neutrophils 1 % (0-10); Lymphocytes 4 % (20-55); Platelet Estimate Adequate; Segmented Neutrophils 93 % (50-85); Total Cells Counted 100
[2020-03-28] MEDS: BUDESONIDE 0.25 MG/2 ML NEB RESP TX SCH ×2 (07:02→19:00)
[2020-03-28] MEDS: ALBUTEROL/IPRATROPIUM 3 ML NEB RESP TX SCH ×4 (07:02→19:00)
[2020-03-28 07:11] LABS: Albumin 2.7 G/DL (3.4-5.0); Bilirubin,Total 1.3 MG/DL (0.2-1.0); Calcium 9.4 MG/DL (8.5-10.1); Osmolality,Calculated 280.7 MOS/KG (273-304); Potassium 3.7 MMOL/L (3.5-5.1); Total Protein 7.4 G/DL (6.4-8.3)
[2020-03-28] MEDS: MAGNESIUM HYDROXIDE SUSP 30 ML UDCUP PO SCH ×4 (08:31→20:50)
[2020-03-28] MEDS: FUROSEMIDE 40 MG/4 ML VIAL IV SCH (08:32)
[2020-03-28] MEDS: PANTOPRAZOLE 40 MG TABLET PO SCH ×2 (08:37→21:50)
[2020-03-28] MEDS: CARBOXYMETHYLCELLULOSE 1% OPH SOLN LEFT EYE SCH ×4 (08:37→21:50)
[2020-03-28] MEDS: carvediloL 25 MG TABLET PO SCH ×2 (08:37→16:55)
[2020-03-28] MEDS: DOCUSATE SODIUM 100 MG CAPSULE PO SCH ×2 (08:38→20:51)
[2020-03-28] MEDS: ALPRAZolam 0.25 MG TABLET PO SCH ×2 (08:39→20:51)
[2020-03-28] MEDS: NICOTINE 7 MG/24 HR PATCH TRANSDERM SCH (08:39)
[2020-03-28] MEDS: FAMOTIDINE 20 MG TABLET PO SCH (08:41)
[2020-03-28] MEDS: METOPROLOL TARTRATE 25 MG TABLET PO SCH ×2 (08:42→20:51)
[2020-03-28] MEDS: INSULIN GLARGINE 100 UNIT/ML SUBCUT SCH (10:03)
[2020-03-28] MEDS: AZITHROMYCIN INJ 500 MG in SODIUM CHLORIDE 0.9% 250 ML IV SCH (10:03)
[2020-03-28] MEDS: GLIMEPIRIDE 4 MG TABLET PO SCH ×2 (14:45→17:07)
[2020-03-28] MEDS ORDERED: ALUMINUM/MAGNES/SIMETH MAX STR 30 ML UDCUP PO PRN (16:41)
[2020-03-28] MEDS: MAGNESIUM CITRATE 300 ML BOTTLE PO SCH (16:54)
[2020-03-28] MEDS: SERTRALINE 100 MG TABLET PO SCH (20:51)
[2020-03-28] MEDS: SIMVASTATIN 20 MG TABLET PO SCH (20:51)
[2020-03-28] MEDS: OMEGA 3 ACID ETHYL ESTERS 1 GM CAPSULE PO SCH (20:52)
[2020-03-28] MEDS: AMITRIPTYLINE 50 MG TABLET PO SCH (20:52)
[2020-03-28] MEDS: SODIUM CHLOR 0.9% KCL 20 MEQ 20 MEQ/1,000 ML BAG IV SCH (21:50)
[2020-03-28] MEDS: ASPIRIN EC 81 MG TABLET PO SCH (21:50)
[2020-03-29] MEDS: ALBUTEROL/IPRATROPIUM 3 ML NEB RESP TX SCH ×4 (00:16→19:44)
[2020-03-29] MEDS: INSULIN LISPRO 100 UNIT/ML SUBCUT SCH ×6 (00:33→20:28)
[2020-03-29] MEDS: ALBUMIN 25% 25 GM in PREMIX 1 EACH IV SCH ×2 (00:33→09:26)
[2020-03-29] MEDS: methylPREDNISolone SOD SUC 40 MG/1 ML VIAL IV SCH ×4 (03:30→20:29)
[2020-03-29] MEDS: MEROPENEM 500 MG in SODIUM CHLORIDE 0.9% 100 ML IV SCH ×4 (03:30→20:33)
[2020-03-29] MEDS: KETOROLAC 15 MG/1 ML VIAL IV SCH ×4 (03:30→20:31)
[2020-03-29 06:48] LABS: Hematocrit 35.1 VOL% (35.7-47.0); Hemoglobin 12.3 GM/DL (12.0-16.0); Immature Granulocytes % 1.2 %; Immature Granulocytes Absolute 0.09 #; Lymphocytes # 0.8 10*3/uL (1.4-4.0); Lymphocytes % 11.3 % (21.3-54.2); Mean Corpuscular Volume 85.2 FL (87-102); Mean Platelet Volume 9.9 FL (9.6-12.0); Monocytes % 3.1 % (1.7-12.7); Neutrophils % 84.4 % (38.7-73.9); Platelet Count 183 T/CUMM (130-400); Red Blood Count 4.12 MC/CUMM (3.8-5.5); Red Cell Distribution Width 14.2 % (9.3-17.3); White Blood Count 7.3 T/CUMM (4-12)
[2020-03-29 07:10] LABS: Albumin 3.3 G/DL (3.4-5.0); Bilirubin,Total 1.1 MG/DL (0.2-1.0); Osmolality,Calculated 285.4 MOS/KG (273-304); Potassium 3.3 MMOL/L (3.5-5.1); Total Protein 7.3 G/DL (6.4-8.3)
[2020-03-29] MEDS: BUDESONIDE 0.25 MG/2 ML NEB RESP TX SCH ×2 (07:40→19:44)
[2020-03-29] MEDS: FUROSEMIDE 40 MG/4 ML VIAL IV SCH (09:07)
[2020-03-29] MEDS: INSULIN GLARGINE 100 UNIT/ML SUBCUT SCH (09:08)
[2020-03-29] MEDS: DOCUSATE SODIUM 100 MG CAPSULE PO SCH ×2 (09:09→20:36)
[2020-03-29] MEDS: NICOTINE 7 MG/24 HR PATCH TRANSDERM SCH (09:09)
[2020-03-29] MEDS: ALPRAZolam 0.25 MG TABLET PO SCH ×2 (09:09→20:35)
[2020-03-29] MEDS: GLIMEPIRIDE 4 MG TABLET PO SCH ×2 (09:09→16:29)
[2020-03-29] MEDS: PANTOPRAZOLE 40 MG TABLET PO SCH ×2 (09:09→20:35)
[2020-03-29] MEDS: carvediloL 25 MG TABLET PO SCH ×2 (09:09→16:28)
[2020-03-29] MEDS: METOPROLOL TARTRATE 25 MG TABLET PO SCH ×2 (09:10→20:35)
[2020-03-29] MEDS: MAGNESIUM CITRATE 300 ML BOTTLE PO SCH (09:10)
[2020-03-29] MEDS: CARBOXYMETHYLCELLULOSE 1% OPH SOLN LEFT EYE SCH ×4 (09:15→20:39)
[2020-03-29] MEDS: MAGNESIUM HYDROXIDE SUSP 30 ML UDCUP PO SCH ×4 (09:18→20:36)
[2020-03-29] MEDS ORDERED: POTASSIUM CHLORIDE 20 MEQ TABLET PO ONE (09:48)
[2020-03-29] MEDS: AZITHROMYCIN INJ 500 MG in SODIUM CHLORIDE 0.9% 250 ML IV SCH (10:35)
[2020-03-29] MEDS ORDERED: DEXTROSE 50% 25 GM/50 ML VIAL IV PRN (10:51)
[2020-03-29] MEDS ORDERED: GLUCAGON 1 MG VIAL IM PRN (10:51)
[2020-03-29] MEDS: POTASSIUM CHLORIDE 20 MEQ TABLET PO SCH ×2 (12:23→20:35)
[2020-03-29] MEDS: SODIUM CHLOR 0.9% KCL 20 MEQ 20 MEQ/1,000 ML BAG IV SCH (17:06)
[2020-03-29] MEDS: SIMVASTATIN 20 MG TABLET PO SCH (20:35)
[2020-03-29] MEDS: OMEGA 3 ACID ETHYL ESTERS 1 GM CAPSULE PO SCH (20:35)
[2020-03-29] MEDS: SERTRALINE 100 MG TABLET PO SCH (20:35)
[2020-03-29] MEDS: ASPIRIN EC 81 MG TABLET PO SCH (20:35)
[2020-03-29] MEDS: AMITRIPTYLINE 50 MG TABLET PO SCH (20:36)
[2020-03-30] MEDS: INSULIN LISPRO 100 UNIT/ML SUBCUT SCH ×7 (00:11→23:44)
[2020-03-30] MEDS: ALBUTEROL/IPRATROPIUM 3 ML NEB RESP TX SCH ×4 (01:42→20:27)
[2020-03-30] MEDS: methylPREDNISolone SOD SUC 40 MG/1 ML VIAL IV SCH ×4 (03:38→20:14)
[2020-03-30] MEDS: MEROPENEM 500 MG in SODIUM CHLORIDE 0.9% 100 ML IV SCH ×4 (03:40→20:21)
[2020-03-30] MEDS: KETOROLAC 15 MG/1 ML VIAL IV SCH ×3 (03:48→14:12)
[2020-03-30 06:34] LABS: Bilirubin,Total 1.1 MG/DL (0.2-1.0); Calcium 8.8 MG/DL (8.5-10.1); Osmolality,Calculated 278.8 MOS/KG (273-304); Potassium 4.1 MMOL/L (3.5-5.1)
[2020-03-30] MEDS: BUDESONIDE 0.25 MG/2 ML NEB RESP TX SCH ×2 (07:17→20:27)
[2020-03-30] MEDS: FUROSEMIDE 40 MG/4 ML VIAL IV SCH (08:34)
[2020-03-30] MEDS: INSULIN GLARGINE 100 UNIT/ML SUBCUT SCH (08:35)
[2020-03-30] MEDS: DOCUSATE SODIUM 100 MG CAPSULE PO SCH ×2 (08:35→20:14)
[2020-03-30] MEDS: GLIMEPIRIDE 4 MG TABLET PO SCH ×2 (08:35→17:45)
[2020-03-30] MEDS: MAGNESIUM CITRATE 300 ML BOTTLE PO SCH (08:36)
[2020-03-30] MEDS: carvediloL 25 MG TABLET PO SCH ×2 (08:36→17:46)
[2020-03-30] MEDS: ALPRAZolam 0.25 MG TABLET PO SCH ×2 (08:36→20:13)
[2020-03-30] MEDS: MAGNESIUM HYDROXIDE SUSP 30 ML UDCUP PO SCH ×4 (08:36→20:15)
[2020-03-30] MEDS: METOPROLOL TARTRATE 25 MG TABLET PO SCH ×2 (08:36→20:13)
[2020-03-30] MEDS: NICOTINE 7 MG/24 HR PATCH TRANSDERM SCH (08:36)
[2020-03-30] MEDS: POTASSIUM CHLORIDE 20 MEQ TABLET PO SCH ×2 (08:36→20:14)
[2020-03-30] MEDS: PANTOPRAZOLE 40 MG TABLET PO SCH ×2 (08:36→20:13)
[2020-03-30] MEDS: CARBOXYMETHYLCELLULOSE 1% OPH SOLN LEFT EYE SCH ×4 (08:37→20:31)
[2020-03-30] MEDS: AZITHROMYCIN INJ 500 MG in SODIUM CHLORIDE 0.9% 250 ML IV SCH (10:30)
[2020-03-30] MEDS: LIDOCAINE 5% PATCH TRANSDERM SCH (17:46)
[2020-03-30] MEDS: ASPIRIN EC 81 MG TABLET PO SCH (20:13)
[2020-03-30] MEDS: OMEGA 3 ACID ETHYL ESTERS 1 GM CAPSULE PO SCH (20:13)
[2020-03-30] MEDS: AMITRIPTYLINE 50 MG TABLET PO SCH (20:14)
[2020-03-30] MEDS: SERTRALINE 100 MG TABLET PO SCH (20:14)
[2020-03-30] MEDS: SIMVASTATIN 20 MG TABLET PO SCH (20:14)
[2020-03-30] MEDS: traMADol 50 MG TABLET PO PRN (20:30)
[2020-03-30] MEDS: SODIUM CHLOR 0.9% KCL 20 MEQ 20 MEQ/1,000 ML BAG IV SCH (23:43)
[2020-03-31] MEDS: ALBUTEROL/IPRATROPIUM 3 ML NEB RESP TX SCH ×4 (01:10→19:09)
[2020-03-31] MEDS: MEROPENEM 500 MG in SODIUM CHLORIDE 0.9% 100 ML IV SCH ×4 (03:05→20:19)
[2020-03-31] MEDS: methylPREDNISolone SOD SUC 40 MG/1 ML VIAL IV SCH ×4 (03:05→22:20)
[2020-03-31] MEDS: INSULIN LISPRO 100 UNIT/ML SUBCUT SCH ×6 (03:34→23:42)
[2020-03-31 06:12] LABS: Albumin 3.1 G/DL (3.4-5.0); Bilirubin,Total 0.8 MG/DL (0.2-1.0); Calcium 8.7 MG/DL (8.5-10.1); Osmolality,Calculated 278.8 MOS/KG (273-304); Potassium 4.7 MMOL/L (3.5-5.1); Total Protein 6.8 G/DL (6.4-8.3)
[2020-03-31] MEDS: BUDESONIDE 0.25 MG/2 ML NEB RESP TX SCH ×2 (07:31→19:09)
[2020-03-31] MEDS: CARBOXYMETHYLCELLULOSE 1% OPH SOLN LEFT EYE SCH ×4 (09:05→20:24)
[2020-03-31] MEDS: MAGNESIUM HYDROXIDE SUSP 30 ML UDCUP PO SCH ×4 (09:06→20:17)
[2020-03-31] MEDS: NICOTINE 7 MG/24 HR PATCH TRANSDERM SCH (09:06)
[2020-03-31] MEDS: carvediloL 25 MG TABLET PO SCH ×2 (09:07→16:25)
[2020-03-31] MEDS: ALPRAZolam 0.25 MG TABLET PO SCH ×2 (09:07→20:18)
[2020-03-31] MEDS: METOPROLOL TARTRATE 25 MG TABLET PO SCH ×2 (09:07→20:19)
[2020-03-31] MEDS: PANTOPRAZOLE 40 MG TABLET PO SCH ×2 (09:07→20:18)
[2020-03-31] MEDS: INSULIN GLARGINE 100 UNIT/ML SUBCUT SCH (09:07)
[2020-03-31] MEDS: POTASSIUM CHLORIDE 20 MEQ TABLET PO SCH ×2 (09:07→20:18)
[2020-03-31] MEDS: GLIMEPIRIDE 4 MG TABLET PO SCH ×2 (09:07→16:25)
[2020-03-31] MEDS: DOCUSATE SODIUM 100 MG CAPSULE PO SCH ×2 (09:07→20:18)
[2020-03-31] MEDS: MAGNESIUM CITRATE 300 ML BOTTLE PO SCH (09:08)
[2020-03-31] MEDS: FUROSEMIDE 40 MG/4 ML VIAL IV SCH (09:08)
[2020-03-31] MEDS: LIDOCAINE 5% PATCH TRANSDERM SCH (09:09)
[2020-03-31] MEDS: traMADol 50 MG TABLET PO PRN (09:15)
[2020-03-31] MEDS: SIMVASTATIN 20 MG TABLET PO SCH (20:17)
[2020-03-31] MEDS: OMEGA 3 ACID ETHYL ESTERS 1 GM CAPSULE PO SCH (20:17)
[2020-03-31] MEDS: SERTRALINE 100 MG TABLET PO SCH (20:18)
[2020-03-31] MEDS: AMITRIPTYLINE 50 MG TABLET PO SCH (20:18)
[2020-03-31] MEDS: ASPIRIN EC 81 MG TABLET PO SCH (20:19)
[2020-03-31] MEDS: SODIUM CHLOR 0.9% KCL 20 MEQ 20 MEQ/1,000 ML BAG IV SCH (23:43)
[2020-04-01] MEDS: MEROPENEM 500 MG in SODIUM CHLORIDE 0.9% 100 ML IV SCH ×3 (02:47→14:59)
[2020-04-01] MEDS: INSULIN LISPRO 100 UNIT/ML SUBCUT SCH ×4 (04:38→16:22)
[2020-04-01 06:41] LABS: Albumin 3.2 G/DL (3.4-5.0); Bilirubin,Total 0.9 MG/DL (0.2-1.0); Calcium 9.1 MG/DL (8.5-10.1); Osmolality,Calculated 282.1 MOS/KG (273-304); Total Protein 7.2 G/DL (6.4-8.3)
[2020-04-01] MEDS: ALBUTEROL/IPRATROPIUM 3 ML NEB RESP TX SCH ×3 (07:30→13:24)
[2020-04-01] MEDS: BUDESONIDE 0.25 MG/2 ML NEB RESP TX SCH (07:30)
[2020-04-01] MEDS ORDERED: FUROSEMIDE 40 MG TABLET PO SCH (09:00)
[2020-04-01] MEDS: INSULIN GLARGINE 100 UNIT/ML SUBCUT SCH (09:21)
[2020-04-01] MEDS: POTASSIUM CHLORIDE 20 MEQ TABLET PO SCH (09:22)
[2020-04-01] MEDS: GLIMEPIRIDE 4 MG TABLET PO SCH ×2 (09:22→16:17)
[2020-04-01] MEDS: CARBOXYMETHYLCELLULOSE 1% OPH SOLN LEFT EYE SCH ×3 (09:22→16:18)
[2020-04-01] MEDS: ALPRAZolam 0.25 MG TABLET PO SCH (09:22)
[2020-04-01] MEDS: NICOTINE 7 MG/24 HR PATCH TRANSDERM SCH (09:23)
[2020-04-01] MEDS: DOCUSATE SODIUM 100 MG CAPSULE PO SCH (09:23)
[2020-04-01] MEDS: MAGNESIUM HYDROXIDE SUSP 30 ML UDCUP PO SCH ×2 (09:23→14:49)
[2020-04-01] MEDS: carvediloL 25 MG TABLET PO SCH ×2 (09:23→16:17)
[2020-04-01] MEDS: METOPROLOL TARTRATE 25 MG TABLET PO SCH (09:23)
[2020-04-01] MEDS: traMADol 50 MG TABLET PO PRN (09:23)
[2020-04-01] MEDS: PANTOPRAZOLE 40 MG TABLET PO SCH (09:23)
[2020-04-01] MEDS: MAGNESIUM CITRATE 300 ML BOTTLE PO SCH (09:24)
[2020-04-01] MEDS: LIDOCAINE 5% PATCH TRANSDERM SCH (09:43)
[2020-04-01 16:13] VITALS: BP 112/64
== END 2020-04-01 17:31 | disposition home or self-care (01) | DRG 438 ==
LOC: N.ED 15:36 → N.EDINP 15:36 → OBSVTOIN 17:47 → N.5E 18:48
PROVIDERS: ADMIT Internal Medicine; ATTEND Internal Medicine